=== PATIENT | female | born 1975 | race Caucasian/White ===

== ENCOUNTER 2018-08-07 21:18 | Emergency (ER) | payer OTHER ==
[~2018-08-07 21:18] MED LIST: CATAFLAM50 MG PO; CELEXA40 MG PO; CIPROFLOXACIN500 MG PO; HYDROCODONE BIT1 T11 PO; MOTRIN800 MG PO; SYNTHROID,LEVO50 MCG PO; TOPROL XL50 MG PO; ULTRAM50 MG PO; XANAX1 MG PO
[2018-08-07] MEDS ORDERED: CYCLOBENZAPRINE10 MG PO (21:26)
[2018-08-07] MEDS ORDERED: IBU800 MG PO (21:26)
== END 2018-08-07 23:15 | disposition home or self-care (01) ==
LOC: ED 21:18
DX: M54.6 Pain in thoracic spine (principal); M25.511 Pain in right shoulder; M25.512 Pain in left shoulder; Z88.8 Allergy status to other drugs, medicaments and biological substances; Z88.5 Allergy status to narcotic agent; Z79.899 Other long term (current) drug therapy; W10.9XXA Fall (on) (from) unspecified stairs and steps, initial encounter; Y93.89 Activity, other specified; Y92.89 Other specified places as the place of occurrence of the external cause; Y99.8 Other external cause status

== ENCOUNTER 2020-02-28 19:36 | Emergency (ER) | payer OTHER ==
[~2020-02-28] VITALS: Ht 175.2 cm; Wt 77.1 kg
[~2020-02-28 19:36] MED LIST changes: +CYCLOBENZAPRINE10 MG PO; +IBU800 MG PO
[2020-02-28 20:19] LABS: BASO # 0.1 10*3/uL (0.0-0.1); BASO % 0.5 % (0.0-1.0); EOS # 0.4 10*3/uL (0.0-0.4); EOS % 3.7 % (1.0-4.0); HEMATOCRIT 39.1 % (37.0-47.0); LYMPH # 4.4 10*3/uL (1.3-4.4); LYMPH % 45.1 % (27.0-41.0); MEAN CELL VOLUME 85.7 fl (81.0-99.0); MEAN CORPUSCULAR HGB 26.3 pg (27.0-31.0); MEAN CORPUSCULAR HGB CONC 30.7 g/dl (33.0-37.0); MEAN PLATELET VOLUME 10.1 fl (9.6-12.3); MONO # 0.6 10*3/uL (0.1-1.0); MONO % 5.9 % (3.0-9.0); NEUT # 4.3 10*3/uL (2.3-7.9); NEUT % 44.5 % (47.0-73.0); PLATELET COUNT AUTOMATED 495 10*3/uL (130-400); RED BLOOD COUNT 4.56 10*6/uL (4.10-5.10); RED CELL DISTRI WIDTH 15.7 % (0-14.5); WHITE BLOOD COUNT 9.7 10*3/uL (4.8-10.8)
[2020-02-28 20:34] LABS: ALBUMIN 3.7 gm/dl (3.1-4.5); ALKALINE PHOSPHATASE 121 U/L (45-117); BUN 9 mg/dl (7-24); CHLORIDE 111 mmol/L (98-107); CREATININE 1.03 mg/dL (0.55-1.02); POTASSIUM 3.9 mmol/L (3.5-5.1); SGOT/AST 10 IU/L (3-35); SGPT/ALT 15 U/L (12-78); SODIUM 140 mmol/L (136-145); TOTAL PROTEIN 7.6 gm/dL (6.4-8.2)
[2020-02-28 20:35] LABS: ACETAMINOPHEN (TYLENOL) < 5.0 ug/ml (10-30); ETHYL ALCOHOL < 3.0 mg/dl (<3)
[2020-02-28 21:44] LABS: BILIRUBIN 1+; BLOOD NEGATIVE (NEGATIVE); CLARITY CLEAR (CLEAR); COLOR ORANGE (YELLOW); GLUCOSE NEGATIVE; KETONE NEGATIVE; LEUKO ESTERASE 1+ (NEGATIVE); NITRITE POSITIVE (NEGATIVE); PH 5.5 (4.5-8.0); SPECIFIC GRAVITY 1.015 (1.001-1.030)
[2020-02-28 21:47] LABS: BACTERIA 2+; RBC 0-2 rbc/hpf (0-2)
[2020-02-28 21:48] LABS: URINE AMPHETAMINES < 1000 (1000ng/ml); URINE BARBITURATES < 200 (200ng/ml); URINE BENZODIAZEPINES > 200 (200ng/ml); URINE CANNABINOIDS (THC) < 50 (50ng/ml); URINE COCAINE < 300 (300ng/ml); URINE METHADONE < 300 (300ng/ml); URINE OPIATES > 300 (300ng/ml); URINE PHENCYCLIDINE < 25 (25ng/ml)
[2020-02-28] MEDS ORDERED: CEPHALEXIN500 M1 PO (23:23)
== END 2020-02-28 23:38 | disposition home or self-care (01) ==
LOC: ED 19:36
PROVIDERS: Emergency Medicine
DX: F43.21 Adjustment disorder with depressed mood (principal); N39.0 Urinary tract infection, site not specified; I10 Essential (primary) hypertension

== ENCOUNTER 2020-10-28 12:26 | Emergency (ER) | payer OTHER ==
[~2020-10-28] VITALS: Ht 172.7 cm; Wt 83.9 kg
[~2020-10-28 12:26] MED LIST changes: +CEPHALEXIN500 M1 PO
[2020-10-28 13:44] LABS: BASO % 0.6 % (0.0-1.0); EOS # 0.1 10*3/uL (0.0-0.4); EOS % 1.4 % (1.0-4.0); HEMATOCRIT 35.7 % (37.0-47.0); LYMPH # 2.2 10*3/uL (1.3-4.4); LYMPH % 30.2 % (27.0-41.0); MEAN CELL VOLUME 82.8 fl (81.0-99.0); MEAN CORPUSCULAR HGB CONC 31.4 g/dl (33.0-37.0); MEAN PLATELET VOLUME 10.3 fl (9.6-12.3); MONO # 0.4 10*3/uL (0.1-1.0); MONO % 5.9 % (3.0-9.0); NEUT # 4.4 10*3/uL (2.3-7.9); NEUT % 61.6 % (47.0-73.0); PLATELET COUNT AUTOMATED 444 10*3/uL (130-400); RED BLOOD COUNT 4.31 10*6/uL (4.10-5.10); RED CELL DISTRI WIDTH 17.6 % (0-14.5); WHITE BLOOD COUNT 7.2 10*3/uL (4.8-10.8)
[2020-10-28 13:54] LABS: ACT PARTIAL THROMBO TIME 23.8 SECONDS (20.0-32.1); INTERNATIONAL NORM RATIO 1.1 (2.0-3.5)
[2020-10-28 13:59] LABS: ALBUMIN 3.8 gm/dl (3.1-4.5); ALKALINE PHOSPHATASE 105 U/L (45-117); BUN 12 mg/dl (7-24); CHLORIDE 109 mmol/L (98-107); CREATININE 0.83 mg/dL (0.55-1.02); LIPASE 83 U/L (73-393); POTASSIUM 3.8 mmol/L (3.5-5.1); SGOT/AST 19 IU/L (3-35); SGPT/ALT 25 U/L (12-78); SODIUM 139 mmol/L (136-145); TOTAL PROTEIN 7.3 gm/dL (6.4-8.2)
[2020-10-28 14:01] LABS: BETA-HCG, QUANT < 1.0 mIU/mL (1-3); ETHYL ALCOHOL < 3.0 mg/dl (<3)
[2020-10-28 14:20] LABS: BILIRUBIN Negative (Negative); BLOOD Negative (Negative); CLARITY Clear (Clear); COLOR Yellow (Yellow); GLUCOSE Negative (Negative); KETONE Negative (Negative); LEUKO ESTERASE Negative (Negative); NITRITE Negative (Negative); SPECIFIC GRAVITY <= 1.005 (1.001-1.030); UROBILINOGEN 0.2 E.U./dl (0.0-1.0)
[2020-10-28 14:28] LABS: URINE AMPHETAMINES < 1000 (1000ng/ml); URINE BARBITURATES < 200 (200ng/ml); URINE BENZODIAZEPINES > 200 (200ng/ml); URINE CANNABINOIDS (THC) < 50 (50ng/ml); URINE COCAINE < 300 (300ng/ml); URINE METHADONE < 300 (300ng/ml); URINE OPIATES > 300 (300ng/ml)
[2020-10-28 14:29] LABS: BACTERIA 1+; WBC 0-2 wbc/hpf (0-5)
[2020-10-28 14:30] LABS: URINE PHENCYCLIDINE < 25 (25ng/ml)
[2020-10-28 15:23] LABS: ACETAMINOPHEN (TYLENOL) < 2.0 ug/ml (10-30)
== END 2020-10-28 19:20 | disposition home or self-care (01) ==
LOC: ED 12:26
PROVIDERS: Emergency Medicine
DX: G89.29 Other chronic pain (principal); F41.9 Anxiety disorder, unspecified; R10.9 Unspecified abdominal pain; R42 Dizziness and giddiness; R61 Generalized hyperhidrosis; Z88.8 Allergy status to other drugs, medicaments and biological substances; Z88.5 Allergy status to narcotic agent; Z79.2 Long term (current) use of antibiotics; Z79.899 Other long term (current) drug therapy

== ENCOUNTER 2021-06-16 12:44 | Emergency (ER) | payer OTHER ==
[~2021-06-16] VITALS: Wt 81.2 kg
[~2021-06-16 12:44] MED LIST changes: -MEDROL DOSEPAK4 MG PO; -Motrin,Rufen800 MG PO
[2021-06-16] MEDS ORDERED: MEDROL DOSEPAK4 MG PO (14:21)
[2021-06-16] MEDS ORDERED: Motrin,Rufen800 MG PO (14:21)
== END 2021-06-16 16:22 | disposition home or self-care (01) ==
LOC: ED 12:44
DX: M54.42 Lumbago with sciatica, left side (principal); M79.604 Pain in right leg

== ENCOUNTER → 2021-06-16 | Outpatient (CLI) | payer OTHER ==
[~2021-06-16] MED LIST changes: +MEDROL DOSEPAK4 MG PO; +Motrin,Rufen800 MG PO
== END | disposition home or self-care (01) ==
LOC: RAD 12:23
PROVIDERS: ATTEND Family Medicine
DX: M54.40 Lumbago with sciatica, unspecified side (principal)

== ENCOUNTER → 2021-07-03 | Outpatient (CLI) | payer OTHER ==
[~2021-07-03] MED LIST changes: +MEDROL DOSEPAK4 MG PO; +Motrin,Rufen800 MG PO
== END | disposition home or self-care (01) ==
LOC: COVID19 16:46
PROVIDERS: ATTEND Internal Medicine
DX: Z20.822 Contact with and (suspected) exposure to COVID-19 (principal)

== ENCOUNTER → 2022-02-05 | Outpatient (CLI) | payer OTHER | END | disposition home or self-care (01) | LOC: LAB 13:59 | PROVIDERS: ATTEND Family Medicine | DX: M47.812 Spondylosis without myelopathy or radiculopathy, cervical region (principal); M25.511 Pain in right shoulder ==

== ENCOUNTER → 2022-03-09 | Outpatient (CLI) | payer OTHER | END | disposition home or self-care (01) | LOC: MRI 09:00 | PROVIDERS: ATTEND Family Medicine | DX: M47.812 Spondylosis without myelopathy or radiculopathy, cervical region (principal); M48.02 Spinal stenosis, cervical region; M25.78 Osteophyte, vertebrae ==

== ENCOUNTER 2022-05-06 21:27 | Emergency (ER) | payer OTHER ==
[~2022-05-06] VITALS: Wt 81.6 kg
[2022-05-06 21:55] LABS: BASO # 0.1 10*3/uL (0.0-0.1); BASO % 0.5 % (0.0-1.0); EOS # 0.2 10*3/uL (0.0-0.4); EOS % 1.5 % (1.0-4.0); HEMATOCRIT 32.3 % (37.0-47.0); LYMPH % 23.6 % (27.0-41.0); MEAN CELL VOLUME 77.3 fl (81.0-99.0); MEAN CORPUSCULAR HGB 22.7 pg (27.0-31.0); MEAN CORPUSCULAR HGB CONC 29.4 g/dl (33.0-37.0); MEAN PLATELET VOLUME 10.3 fl (9.6-12.3); MONO # 0.7 10*3/uL (0.1-1.0); MONO % 5.8 % (3.0-9.0); NEUT # 8.7 10*3/uL (2.3-7.9); NEUT % 68.3 % (47.0-73.0); PLATELET COUNT AUTOMATED 429 10*3/uL (130-400); RED BLOOD COUNT 4.18 10*6/uL (4.10-5.10); RED CELL DISTRI WIDTH 17.5 % (0-14.5); WHITE BLOOD COUNT 12.7 10*3/uL (4.8-10.8)
[2022-05-06 21:59] LABS: ABG BASE EXCESS -0.8 mmol/L (-2.0-2.0); ARTERIAL BLOOD GAS PH 7.426 (7.35-7.45); ARTERIAL BLOOD GAS PO2 46.6 (80-90)
[2022-05-06 22:14] LABS: BILIRUBIN Negative (Negative); BLOOD Negative (Negative); CLARITY Clear (Clear); COLOR Yellow (Yellow); GLUCOSE Negative (Negative); KETONE Trace (Negative); LEUKO ESTERASE Trace (Negative); NITRITE Negative (Negative); PH 5.5 (4.5-8.0); SPECIFIC GRAVITY 1.015 (1.001-1.030); UROBILINOGEN 0.2 E.U./dl (0.0-1.0)
[2022-05-06 22:20] LABS: ALKALINE PHOSPHATASE 136 U/L (45-117); BUN 10 mg/dl (7-24); CHLORIDE 105 mmol/L (98-107); CREATININE 1.08 mg/dL (0.55-1.02); POTASSIUM 3.1 mmol/L (3.5-5.1); SGOT/AST 18 IU/L (3-35); SGPT/ALT 22 U/L (12-78); SODIUM 139 mmol/L (136-145); TOTAL PROTEIN 7.2 gm/dL (6.4-8.2)
[2022-05-06 22:27] LABS: URINE AMPHETAMINES < 1000 (1000ng/ml); URINE BARBITURATES < 200 (200ng/ml); URINE BENZODIAZEPINES > 200 (200ng/ml); URINE COCAINE < 300 (300ng/ml); URINE METHADONE < 300 (300ng/ml); URINE OPIATES < 300 (300ng/ml)
[2022-05-06 22:29] LABS: URINE CANNABINOIDS (THC) < 50 (50ng/ml)
[2022-05-06 22:30] LABS: B-hCG (QUALITATIVE) NEGATIVE (NEGATIVE)
[2022-05-06 22:31] LABS: URINE PHENCYCLIDINE < 25 (25ng/ml)
[2022-05-06 22:34] LABS: MUCOUS 1+
[2022-05-06] MEDS ORDERED: NEURONTIN300 MG PO (22:38)
[2022-05-06 22:39] LABS: ACETAMINOPHEN (TYLENOL) < 5.0 ug/ml (10-30); ETHYL ALCOHOL < 3.0 mg/dl (<3)
[2022-05-06] MEDS ORDERED: LANSOPRAZOLE30 MG PO (22:39)
[2022-05-06] MEDS ORDERED: FUROSEMIDE20 M1 PO (22:39)
[2022-05-06] MEDS ORDERED: CELECOXIB200 M1 PO (22:39)
== END 2022-05-07 03:52 | disposition home or self-care (01) ==
LOC: ED 21:27
PROVIDERS: Family Medicine
DX: T48.1X1A Poisoning by skeletal muscle relaxants [neuromuscular blocking agents], accidental (unintentional), initial encounter (principal); R40.20 Unspecified coma; Z88.8 Allergy status to other drugs, medicaments and biological substances; Z88.5 Allergy status to narcotic agent; Z79.899 Other long term (current) drug therapy; Y92.89 Other specified places as the place of occurrence of the external cause

== ENCOUNTER → 2023-11-23 | Outpatient (CLI) | payer OTHER ==
[~2023-11-23] MED LIST changes: +CELECOXIB200 M1 PO; +FUROSEMIDE20 M1 PO; +GADOTERATE MEGLUMINE 10 MMOL/20 ML VIAL IV ONE; +LANSOPRAZOLE30 MG PO; +NEURONTIN300 MG PO
== END | disposition home or self-care (01) ==
LOC: MRI 15:00
PROVIDERS: ATTEND Family Medicine
DX: G93.89 Other specified disorders of brain (principal); H53.9 Unspecified visual disturbance; R53.1 Weakness

== ENCOUNTER → 2024-08-07 | Outpatient (CLI) | payer OTHER ==
[~2024-08-07] MED LIST changes: -GADOTERATE MEGLUMINE 10 MMOL/20 ML VIAL IV ONE
== END | disposition home or self-care (01) ==
LOC: CARD 02:19
PROVIDERS: ATTEND Family Medicine
DX: I51.7 Cardiomegaly (principal); R42 Dizziness and giddiness